=== PATIENT | male | born 1965 | race Two or more races ===

== ENCOUNTER 2023-11-05 07:15 | Emergency (ER) | payer BC, SELFPAY ==
--- NOTE | ~2023-11-05 | XR_ITS ---
EXAMINATION: XR SHOULDER, RIGHT CLINICAL INFORMATION: Pain COMPARISON: None available. TECHNIQUE: Three views of the right shoulder. FINDINGS: Visualized portion of the proximal right humerus demonstrate no fracture. Humeral head demonstrates good articulation the glenoid fossa. There are mild degenerative changes of the glenohumeral and acromioclavicular joints. Subtle soft tissue calcifications adjacent to the humeral head. Visualized right-sided ribs and lung parenchyma are unremarkable. XR/XR shoulder RT min 2V IMPRESSION: Mild degenerative changes of the right shoulder without fracture or dislocation.
[2023-11-05 07:47] VITALS: BP 97/66; PULSE 68; RESP 16; O2SAT 100; BMI 22.7
--- NOTE | 2023-11-05 08:14 | ED.EXTPRO ---
HPI - Extremity Problem General Chief complaint: Extremity Problem Stated complaint: R Shoulder Pain ? Bursitis Time Seen by Provider: 11/05/23 07:49 Source: patient and family () Mode of arrival: ambulatory Limitations: no limitations History of Present Illness HPI Narrative: 58-year-old male who presents emergency department for evaluation of right shoulder pain. Patient states that the pain started several weeks prior when he was doing pushups. Patient states that he does 4 sets of 25 pushups daily and when he was doing pushups he felt a pain in his right forearm. He states that shortly after that he developed pain in his right shoulder. He states that they right shoulder pain is got progressively worse. He states the pain is a constant, sharp pain which is worse with movement of his shoulder. He states he is feeling a tingly sensation in his fingers. He also states that his arm is weak since he is having difficulty moving his shoulder. Patient was seen on Friday at his [facility] the by an LUKE, no x-rays were obtained and he was not given any medications. He states that he has been taking Aleve intermittently 1-2 pills with no improvement of his pain. He denies any other injury. He denied fever, chills, rhinorrhea, chest pain, shortness of breath, dyspnea exertion. He states he did have nausea yesterday after taking to lead but no vomiting. Patient states that he does work out frequently, doing pushups and lifting weights. 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 Related Data Previous Rx's Medication Instructions Recorded cyclobenzaprine 10 mg tablet 10 mg PO BEDTIME PRN pain, muscle 11/05/23 spasm #15 tabs Allergies Allergy/AdvReac Type Severity Reaction Status Date / Time No Known Allergies Allergy Verified 11/05/23 07:46 Review of Systems Review of Systems: Yes all other systems are reviewed and are negative [facility] Past Medical History [facility] Narrative: Social history: He denies tobacco use. Occasionally drinks alcohol. He denies drug use. Social History Social History Advance Directives: No Advance Directives Information Provided: No Physical Exam Vital Signs: Vital Signs: Last Vital Signs Pulse 68 11/05/23 07:47 Resp 16 11/05/23 07:47 BP 97/66 11/05/23 07:47 Pulse Ox 100 11/05/23 07:47 O2 Del Method Room Air 11/05/23 07:47 BMI result Body Mass Index 22.7 Vital signs were normal Exam General: Awake, alert in no distress Extremities: Left upper extremity: Normal Right upper extremity: Patient does have tenderness palpation over the deltoid muscle of the shoulder, there is no tenderness palpation over his pectoralis muscles of his chest wall or over his scapular area. Patient has full passive and active range of motion of his wrist forearm and elbow. Patient does have pain with passive range of motion of his shoulder with increased pain with motion against resistance especially with abduction internal and external rotation. See extremities neurovascular intact Psych: Pleasant, cooperative Medical Decision Making Medical Decision Making MDM Narrative: 58-year-old male with no significant past medical history who presents to the emergency department for evaluation of 2 weeks of pain in his right shoulder. Patient has been taking Aleve intermittently with no relief his pain. Patient does exercise on a regular basis getting his upper extremities but does not recount a specific injury. 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 Review of system was negative for systemic symptoms. Patient does have pain with palpation of the deltoid area of his right shoulder, pain with passive range of motion of his right shoulder and increased pain with active range of motion. Given these findings I suspect the patient has tendinitis of his rotator cuff muscles and I did discuss this with him. Patient was advised to take Aleve 220 mg q.12 hours x5 days, then as needed He was prescribed Flexeril 10 mg at night to help relieve pain and spasm with his shoulder muscles. He advised apply ice for 15 minutes followed by heat for 15 minutes 4 to 6 times a day. He was shown 3 rotator cuff stretching exercises and I told him to perform these 3 times a day for the next week. Patient will need to follow-up with orthopedics for re-evaluation He was given a work note Differential Diagnosis Differential Diagnoses: The differential diagnosis associated with the presentation includes Differential diagnosis includes was not limited to tendinitis of the rotator cuff muscles, tear of her rotator cuff muscles, tear of rotator cuff, arthritis, occult fracture Independent Interpretation I performed an independent interpretation of an: Plain X-Ray Radiology Impression Discussion of test interpretation with radiology: I have reviewed the radiologist's reading. Independent Historian Clinical information obtained from an independent historian. History obtained from or confirmed by: Spouse Prescription Management I considered prescription management with: Other (Antispasm medication) Discharge Plan Discharge Clinical Impression: Tendinitis of right shoulder, Injury of right rotator cuff Patient Disposition: Home, Self-Care Instructions: Rotator Cuff Tendinitis (ED) Additional Instructions: Based on your description of your shoulder pain and your exam, I suspect that you have inflammation of the tendons of the rotator cuff muscles which is causing your pain in her limited range of motion of your shoulder. Take Aleve 220 mg pills, 1 pill every 12 hours for 5 days to try to get ahead of the inflammation then after that you can take 1 pill every 12 hours as needed for pain Take Flexeril (cyclobenzaprine) 10 mg pills, 1 pill every at night pain or spasm. This medication will make you sleepy. Do not drive or work while taking this medication. Apply ice for 15 minute then after 15 minutes apply heat for 15 minutes your shoulder, do this 4 times a day to help reduce the pain in her shoulder Do the 3 stretching exercise that I demonstrated for you (crawling up the wall, pendulum swings, big circles in both directions) 4 to 6 times a day. Trying to do normal activities with shoulder however do not exercise or drum for 1 week to address the tendons of your shoulder. Follow-up with our orthopedic group for re-evaluation and 1. Physical therapy may help rehab your shoulder as well, you can ask your doctor to refer you to physical therapy or the orthopedic group may also refer you to physical therapy. Please return to the emergency department if your symptoms get worse or if you develop any symptoms that are concerning to you. Prescriptions: New cyclobenzaprine 10 mg tablet 10 mg PO BEDTIME PRN (Reason: pain, muscle spasm) Qty: 15 0RF Referrals: Abilio Maya MD [Physician] - 1 week (Right shoulder pain with limited range of motion passively and actively) Stand Alone Forms: Work/School Release
== END 2023-11-05 10:16 | disposition home or self-care (01) ==
PROVIDERS: Emergency Provider Emergency Medicine Emergency Medical Services
DX: M75.31 Calcific tendinitis of right shoulder (principal); S46.001A Unspecified injury of muscle(s) and tendon(s) of the rotator cuff of right shoulder, initial encounter; X50.3XXA Overexertion from repetitive movements, initial encounter; Y93.B2 Activity, push-ups, pull-ups, sit-ups; Y92.9 Unspecified place or not applicable; Y99.9 Unspecified external cause status
CPT/HCPCS: 73030; 99282; 99283

== ENCOUNTER 2023-11-20 12:59 | Outpatient (AMB) | payer BC, SELFPAY ==
--- NOTE | 2023-11-20 13:00 | MHC.OFFVIS ---
Intake Intake Visit Reasons: Right shoulder pain Intake Note: Mr. Mcdaniel is a 58-year-old right-hand dominant male who presents with complaints of intermittent pain in his right shoulder. The patient states that he aggravated his shoulder several months ago. At that time he was doing 100 pushups per day for exercise. He thinks that he may have aggravated his shoulder while doing the pushups. He denies any weakness. 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 Allergies No Known Allergies Allergy (Verified 11/20/23 13:00) [facility]LY [facility], [facility] Social History Household Members: Spouse Alcohol intake: current Alcohol intake frequency: a few times a week Patient Tobacco Use Status: Never used Tobacco Use of substances other than those prescribed or required for medical reasons: No Physical Exam Const Other: Well-nourished well-developed very friendly male awake alert and oriented x3 in no acute distress Extrem Other: Bilateral upper extremity examination shows good capillary refill, no skin lesions noted, normal sensation light touch Right shoulder examination shows slightly decreased range of motion when compared to his left shoulder, 4+ out of 5 strength with supraspinatus testing, positive impingement signs, tenderness over his acromioclavicular joint, no instability Results Reviewed Results Reviewed: X-rays of the patient's right shoulder show severe acromioclavicular joint narrowing, a type 2 acromion, no acute bony abnormalities Assessment & Plan Assessment & Plan (1) Impingement of right shoulder: Code(s): M25.811 - Other specified joint disorders, right shoulder (2) Right shoulder pain: Code(s): M25.511 - Pain in right shoulder Plan Mr. Mcdaniel presents with right shoulder pain due to impingement syndrome and rotator cuff tendinosis. I had a lengthy discussion with the patient regarding the treatment options. We will hold off on a cortisone injection at this time. I did give him a prescription to go to formal physical therapy. The do's and don'ts of lifting were discussed at length with the patient. Will follow up with me on an as-needed basis should his symptoms not plateau at an unacceptable level over the next few months. I spent 22 minutes in reviewing the patient's records and imaging studies, seeing the patient and documenting in the medical record. Orders: Orders PT Evaluation and Treatment 11/20/23 M25.811 - Other specified joint disorders, right shoulder Coding Level of Care Code New Pt Level 2 (48863) Diagnoses Impingement of right shoulder M25.811 Right shoulder pain M25.511
== END 2023-11-20 13:18 | disposition home or self-care (01) ==
PROVIDERS: Visit Provider Orthopaedic Surgery
DX: M25.811 Other specified joint disorders, right shoulder (principal); M25.511 Pain in right shoulder
CPT/HCPCS: 99202

== ENCOUNTER → 2023-11-20 12:59 | Outpatient (BNVA) | payer BC, SELFPAY | PROVIDERS: Visit Provider Orthopaedic Surgery ==

== ENCOUNTER 2024-04-05 09:26 | Outpatient (AMB) | payer OTHER, BC, SELFPAY ==
--- NOTE | 2024-04-05 09:29 | MHC.OFFVIS ---
Vital Signs 04/05/24 09:30 Height 5 ft 11 in Weight 165 lb 5.547 oz BMI 23.1 BP 116/68 Blood Pressure Location Lt brachial Position Sitting Pulse 74 Pulse Source Monitor Pulse Oximetry (%) 98 Oxygen Delivery Method Room Air Intake Visit Reasons: [employer]/Rezaazdin-Boskovic/Tachycardia,a-flutter Allergies No Known Allergies Allergy (Verified 11/20/23 13:00) Medication List - Last Reconciled 04/05/24 by Feliciano Hinojosa MD No Known Home Meds HPI Comments Details: This is a cardiology consultation regarding palpitations and question of atrial fibrillation. Patient is fairly healthy apparently used to be running marathons and extremely active at baseline. He states that around 10 years ago he was having palpitations and he underwent workup including a stress test which was apparently unremarkable. Then he was fine for a few years but more recently he is again having some palpitations. Very brief episodes and lasting just about a minute or less. Sometimes, goes on for about an hour but nothing prolonged. No other cardiac symptoms. He is undergone Holter through the [place] and that shows bursts of either SVT or flutter. There is also some iPhone alerts for atrial fibrillation and I reviewed the strips. Possible atrial fibrillation but difficult to be sure. Improvement in symptoms after cutting back on alcohol/caffeine. [facility] Family History (Updated 04/05/24 @ 09:48 by Feliciano Hinojosa MD) Father No problems noted. Mother No problems noted. Social History (Updated 04/05/24 @ 09:40 by Leslie Hammond) Household Members: Spouse Alcohol intake: former Patient Tobacco Use Status: Never used Tobacco Review of Systems Const Denies weakness ENT Denies dizziness Card Denies chest pain, Denies chest pain with activity, Denies syncope, Denies rapid heart rate, Denies pedal edema, Denies edema, Denies leg edema, Denies lightheadedness, Denies palpitations, Denies dyspnea, Denies dyspnea on exertion and Denies orthopnea Resp Denies cough, Denies dyspnea and Denies dyspnea on exertion GI Denies hematochezia and Denies change in stool character Musc Denies abnormal gait, Denies muscle cramps, Denies muscle weakness, Denies numbness, Denies radiating pain into limb and Denies tingling Neuro Denies abnormal gait, Denies dizziness, Denies syncope, Denies numbness, Denies tingling and Denies weakness Endo Denies palpitations Physical Exam Vital Signs: Last Vital Signs Pulse 74 04/05/24 09:30 BP 116/68 04/05/24 09:30 Pulse Ox 98 04/05/24 09:30 Oxygen Delivery Method Room Air 04/05/24 09:30 BMI result Body Mass Index 23.1 Const General: comfortable and no acute distress Orientation/consciousness: patient oriented x3 HEENT Other: Unremarkable Head: Yes normal to inspection Neck Neck: Yes normal visual inspection Chest Chest palpation & inspection: normal inspection of the chest Resp Auscultation: clear to auscultation bilaterally Cardio Palpation: normal PMI Heart sounds: S1 normal heart sound present, S2 normal heart sound present, no gallops, no murmurs and no rubs GI Palpation (GI): Soft to palpation Back/Spine/Pelvis Other: unremarkable Skin General skin exam: no rashes or lesions noted Neuro General: patient oriented x3 Extrem General: Yes normal to inspection Psych Mental Status: mental status grossly normal Office Procedures EKG Details: EKG with sinus rhythm at 74/Min; no significant ST-T changes and otherwise unremarkable. [place]. [address]-Rhdfixhxszqruhzaa, Complete Assessment & Plan Assessment & Plan (1) Atrial arrhythmia: Code(s): I49.8 - Other specified cardiac arrhythmias Category: Medical Plan Available records reviewed. Echocardiogram 2017 with LVEF of 60%. Normal diastolic function. No significant valvular findings and otherwise unremarkable. Left atrium described to be normal in size. In the 7 day Holter, underlying rhythm is sinus with an average rate of 75/Min. He does have PACs with a burden of 2.8%. Short runs of SVT, longest around a minute. Could not exclude atrial tachycardia with variable block and atrial flutter. Overall, history of endurance exercises, palpitations, atrial arrhythmias which could be some combination of PACs, atrial tachycardia, flutter, fibrillation. Discussed pathophysiology of the above. His blood pressure runs low and hence will not be suitable for any beta-blockers or calcium channel blockers. He does not want any medications either as they are not too bothersome. If necessary, we may have to use something like flecainide. We will repeat another echocardiogram as it has been many years and will also get a Holter and reassess. Follow-up after that. Patient agrees to plan. Orders: Orders ECG 14 day holter monitor 3 Months I49.8 - Other specified cardiac arrhythmias CA echo transthoracic complete 3 Months I49.8 - Other specified cardiac arrhythmias Coding Level of Care Code New Pt Level 4 (82389) Diagnoses Atrial arrhythmia I49.8 CPT Codes EKG - CPT: 65554-Adrxrvwsuhfcocokd, Complete ([id number])
[2024-04-05 09:30] VITALS: BP 116/68; PULSE 74; O2SAT 98; BMI 23.1
== END 2024-04-05 09:58 | disposition home or self-care (01) ==
PROVIDERS: PCP Internal Medicine; Visit Provider Internal Medicine
DX: I49.8 Other specified cardiac arrhythmias (principal)
CPT/HCPCS: 93010; 99204

== ENCOUNTER → 2024-04-05 09:26 | Outpatient (BNVA) | payer OTHER, BC, SELFPAY | PROVIDERS: PCP Internal Medicine; Visit Provider Internal Medicine | DX: I49.8 Other specified cardiac arrhythmias (principal) | CPT/HCPCS: 93005; 99202 ==

== ENCOUNTER → 2024-06-18 09:13 | Outpatient (REF) | payer OTHER, BC, SELFPAY ==
--- NOTE | 2024-06-18 09:19 | HM_ITS ---
* Total monitoring time 14 days. * Underlying rhythm is sinus with an average rate of 78/Min. * Frequent supraventricular ectopy with a burden of 2.3%. Brief runs. Longest about 20 beats. * Atrial flutter/fibrillation episodes. Very low burden, 0.02%. Longest 1 minute 18 seconds. Fastest 159/Min. * Rare ventricular ectopy. * No significant pauses or AV blocks. * No patient markers. Patient diary without any symptoms. MTDD
--- NOTE | 2024-06-18 09:19 | CA_ITS ---
Transthoracic Echocardiogram Patient (Last, First, Middle): Enzo Mcdaniel E Gender: Male Date of : 1965 Age: 58 Procedure Date: 06/18/2024 Procedure Type: Transthoracic Echocardiogram Location: OP Height: 180.34 cm Weight: 75.3 kg BSA: 1.95 m2 Heart Rate: 69 bpm BP: 120 / 65 mmHg Overlock Operator: MICHELLE Agrawal MD: Feliciano Hinojosa MD Commissary Officer: Antony Murrieta MD Symptoms: I49.8 - Other specified cardiac arrhythmias Study Quality: Adequate ECG Rhythm: Sinus Conclusions: - Normal study Findings Left Ventricle Normal left ventricular size, thickness, and systolic function. The visually estimated ejection fraction is between 60-65%. Diastolic function is normal for age. Peak GLS is -19.2%, within normal limits. Right Ventricle Normal right ventricular cavity size and systolic function. Atria Both atria are normal in size. There is no evidence of interatrial shunt. Aortic Valve Normal aortic valve structure and function. There is no aortic valve stenosis. There is no aortic valve regurgitation. Mitral Valve Normal mitral valve structure and function. There is trace mitral valve regurgitation. There is no mitral valve stenosis. Pulmonic Valve The pulmonic valve is likely normal. There is trace pulmonic valve regurgitation. Tricuspid Valve Normal tricuspid valve structure. There is trace tricuspid valve regurgitation. The right ventricular systolic pressure is normal. The right ventricular systolic pressure is 25 mmHg. Normal right atrial pressure. There is no evidence of pulmonary hypertension. Great Vessels All visible segments of the aorta are normal in size. The visualized portions of the pulmonary artery and branches are normal. Venous The inferior vena cava is normal in size and collapses greater than 50% with inspiration. Pericardium/Pleural There is no evidence of pericardial effusion. Prior Study Comparison No prior study available for comparison. Measurements 2D Linear Measurements IVSd: 0.75 0.6-0.9/0.6-1.0 cm LVIDd: 4.88 3.9-5.3/4.2-5.9 cm LVIDd Index: 2.50 2.4-3.2/2.2-3.1 cm/m2 LVIDs: 3.00 2.0-3.6 cm LVPWd: 0.73 0.7-1.1 cm LA Diam: 3.40 2.7-3.8/3.0-4.0 cm LAIDs Index: 1.74 1.5-2.3 cm/m2 LV Mass: 146.94 67-162/88-224 g LV Mass Index: 75.35 43-95/49-115 g/m2 LVOT Diam: 2.00 3.0+(-)1.3 cm 2D Systolic Function EF 4C: 64.80 >55% EF 2C: 64.30 >55% EF BiP: 64.30 >55% Mitral Valve MV Pk E: 0.72 MV PK A: 0.57 MV Decel Time: 250.00 E/A: 1.30 E'Lateral: 11.90 E'Medial: 10.00 E/E' Med: 7.20 E/E' Lat: 6.10 PHT: 73.00 MVA PHT: 3.01 Decel Trego: 2.90 Aortic Valve AoV Pk Omar: 1.26 AoV Mn Omar: 0.96 AoV VTI: 0.29 AoV Pk Grad: 6.00 Aov Mn Grad: 4.00 OUMAR Cont.VTI: 2.61 LVOT LVOT Pk Omar: 1.14 LVOT Mn Omar: 0.78 LVOT VTI: 0.24 LVOT Pk Grad: 5.00 LVOT Mn Grad: 3.00 LVOT Diam: 2.00 LVOT Area: 3.14 Diastolic Function MV Pk E: 0.72 MV Pk A: 0.57 E/A: 1.30 E'Medial: 10.00 E/E' Med: 7.20 E' Laterial: 11.90 E/E' Lat: 6.10 Right Ventricle TAPSE (mm): 27.80 TVS' Omar: 15.70 Tricuspid Valve TR Pk Omar: 2.33 TR Pk Grad: 22.00 RA Press: 3.00 RVSP: 25.00 Great Vessels Aorta Sinus of Valsalva: 3.40 2.0-3.5 cm Ao Asc: 3.50 2.1-3.4 cm Pulmonary Valve PV Pk Omar: 0.90 Peak PV Grad: 3.00 Updated in Other Vendor System with Status of Final Anotny Murrieta MD electronically signed on 06/19/2024 12:26:45 PM with status of Final
== END ==
LOC: HO.CARD 09:13
PROVIDERS: PCP Internal Medicine; Visit Provider Internal Medicine
DX: I49.8 Other specified cardiac arrhythmias (principal)
CPT/HCPCS: 93246; 93306; 93356

== ENCOUNTER → 2024-06-18 09:19 | Outpatient (BNV) | payer OTHER, BC, SELFPAY | PROVIDERS: PCP Internal Medicine; Visit Provider Internal Medicine Cardiovascular Disease | DX: I48.91 Unspecified atrial fibrillation (principal); I48.92 Unspecified atrial flutter; I47.10 Supraventricular tachycardia, unspecified | CPT/HCPCS: 93248; 93306; 93356 ==

== ENCOUNTER 2024-07-06 09:07 | Outpatient (AMB) | payer OTHER, BC, SELFPAY ==
--- NOTE | 2024-07-06 09:09 | MHC.OFFVIS ---
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 Recently seen in consultation regarding palpitations and possible atrial fibrillation. Patient is fairly healthy apparently used to be running marathons and extremely active at baseline. He states that around 10 years ago he was having palpitations and he underwent workup including a stress test which was apparently unremarkable. Then he was fine for a few years but more recently he is again having some palpitations. Very brief episodes and lasting just about a minute or less. Sometimes, goes on for about an hour but nothing prolonged. No other cardiac symptoms. He underwent Holter through the [place] and that shows bursts of either SVT or flutter. There is also some iPhone alerts for atrial fibrillation and I reviewed the strips. Possible atrial fibrillation but difficult to be sure. Improvement in symptoms after cutting back on alcohol/caffeine. He has completed an echocardiogram and another Holter. [facility] Family History Father No problems noted. Mother No problems noted. Social History Household Members: Spouse Alcohol intake: former Patient Tobacco Use Status: Never used Tobacco Review of Systems Const Denies chills, Denies fatigue, Denies fever(s), Denies weight gain and Denies weight loss ENT Denies dizziness Card Denies chest pain, Denies leg edema, Denies lightheadedness, Denies palpitations, Denies dyspnea on exertion, Denies orthopnea and Denies other Resp Denies cough and Denies dyspnea on exertion GI Denies hematochezia and Denies change in stool character Musc Denies abnormal gait, Denies muscle weakness, Denies numbness, Denies radiating pain into limb and Denies tingling Neuro Denies abnormal gait, Denies dizziness, Denies numbness and Denies tingling Endo Denies fatigue and Denies palpitations Physical Exam Vital Signs: Last Vital Signs Pulse 84 07/06/24 09:11 BP 118/56 L 07/06/24 09:11 BMI result Body Mass Index 22.5 Const General: comfortable and no acute distress Orientation/consciousness: patient oriented x3 HEENT Other: Unremarkable Head: Yes normal to inspection Neck Neck: Yes normal visual inspection Chest Chest palpation & inspection: normal inspection of the chest Resp Auscultation: clear to auscultation bilaterally Cardio Palpation: normal PMI Heart sounds: S1 normal heart sound present, S2 normal heart sound present, no gallops, no murmurs and no rubs GI Palpation (GI): Soft to palpation Back/Spine/Pelvis Other: unremarkable Skin General skin exam: no rashes or lesions noted Neuro General: patient oriented x3 Extrem General: Yes normal to inspection Psych Mental Status: mental status grossly normal Assessment & Plan Assessment & Plan (1) PAF (paroxysmal atrial fibrillation): Code(s): I48.0 - Paroxysmal atrial fibrillation Category: Medical (2) Atrial arrhythmia: Code(s): I49.8 - Other specified cardiac arrhythmias Category: Medical Plan Cardiac data reviewed. Echocardiogram 2017 with LVEF of 60%. Normal diastolic function. No significant valvular findings and otherwise unremarkable. Left atrium described to be normal in size. In the 7 day Holter, underlying rhythm is sinus with an average rate of 75/Min. He does have PACs with a burden of 2.8%. Short runs of SVT, longest around a minute. Could not exclude atrial tachycardia with variable block and atrial flutter. Recent studies- Echocardiogram with LVEF of 60-65% with normal peak global longitudinal strain. Normal atrial size. Otherwise unremarkable. In the Holter monitor, underlying sinus rhythm with frequent supraventricular ectopy with a burden of 2.3%. Brief atrial flutter/fibrillation episodes with a burden of 0.02%. Longest episode is just over minute. Findings discussed with patient. Also reviewed the strips. Overall, he states he is actually feeling better the symptoms are not too bothersome. His blood pressure runs in the lowish range and hence may not be able tolerate any beta-blockers and he does not want any medications either. If indeed he has more frequent palpitations, can consider flecainide. We will see him back in 1 year with another Holter monitor. Orders: Orders ECG 3 day holter monitor 1 Year I48.0 - Paroxysmal atrial fibrillation Coding Level of Care Code Est Pt Level 3 (60022) Diagnoses PAF (paroxysmal atrial fibrillation) I48.0 Atrial arrhythmia I49.8
[2024-07-06 09:11] VITALS: BP 118/56; PULSE 84; BMI 22.5
== END 2024-07-06 10:12 | disposition home or self-care (01) ==
PROVIDERS: PCP Internal Medicine; Visit Provider Internal Medicine
DX: I48.0 Paroxysmal atrial fibrillation (principal); I49.8 Other specified cardiac arrhythmias
CPT/HCPCS: 99213

== ENCOUNTER → 2024-07-06 09:07 | Outpatient (BNVA) | payer OTHER, BC, SELFPAY | PROVIDERS: PCP Internal Medicine; Visit Provider Internal Medicine | DX: I48.0 Paroxysmal atrial fibrillation (principal); I49.8 Other specified cardiac arrhythmias | CPT/HCPCS: 99212 ==

== ENCOUNTER → 2025-09-16 09:45 | Outpatient (REF) | payer OTHER, SELFPAY ==
--- NOTE | 2025-09-16 09:49 | HM_ITS ---
* Total monitoring time 14 days. * Underlying rhythm is sinus with an average rate of 83/Min. * Atrial fibrillation noted with a burden of about 13%. Longest episode 21 hours. Fastest 197/Min. * Rare ventricular ectopy. * Palpitations in patient diary correlated with atrial fibrillation with rapid rate. MTDD
--- OUTSIDE RECORDS SUMMARY | 2025-09-16 11:13 | XMS_ITS | Encounter Summary ---
Author Organization [employer] Address [address] [facility] [address] [place] [address] Care Team Providers Care Uniform Attendant Name Role Phone Unavailable Primary Care Provider Unavailabl e Encounter Details Date Type Department Care Team (Latest Contact Info) Description 05/27/2019 Abstract [facility] CONVERSIONS Dental, Provider, DDS Social History Tobacco Use Types Packs/Day Years Used Date Smoking Tobacco: Never Assessed Sex and Gender Information Value Date Recorded Sex Assigned at Male 09/30/2022 10:30 AM EDT Legal Sex Male 10:30 AM EDT Gender Identity Male 09/30/2022 10:30 AM EDT Sexual Orientation Straight 09/30/2022 10 :30 AM EDT documented as of this encounter Plan of Treatment Not on file documented as of this encounter Visit Diagnoses Not on filedocumented in this encounter
--- OUTSIDE RECORDS SUMMARY | 2025-09-16 11:13 | XMS_ITS | Clinical Summary ---
Author Organization [employer] Address [address] [facility] [address] [place] [address] Care Team Providers Care High Pressure Cleaner Name Role Phone Unavailable Primary Care Provider Unavailabl e Social History Tobacco Use Types Packs/Day Years Used Date Smoking Tobacco: Never Assessed Sex and Gender Information Value Date Recorded Sex Assigned at Male 09/30/2022 10:30 AM EDT Legal Sex Male 10:30 AM EDT Gender Identity Male 09/30/2022 10:30 AM EDT Sexual Orientation Straight 09/30/2022 10 :30 AM EDT Plan of Treatment Health Maintenance Due Date Last Done Comments CT Colonography 1964 Colonoscopy 1964 Colorectal Cancer Screening 1964 Depression Screening 1964 FIT DNA/Cologuard 1964 FIT 1964 FOBT 1964 Lipid Panel 1964 Sigmoidoscopy 1964 Disability Screening 1964 Alcohol/Substance Use Screening 1976 Tobacco Screening 1976 DTaP/Tdap/Td Vaccines (1 - Tdap) 1983 Pneumococcal Vaccine: 50+ Ye ars (1 of 1 - PCV) 2014 Zoster Vaccines (1 of 2) 2014 COVID-19 Vaccine (1 - 2023-2 5 season) 2025 Influenza Vaccine (#1) 2025 RSV Patients and Pa tients Aged 60 years or older (1 - 1-dose 75+ series) 2039 HIB Vaccines Aged Out No longer eligi ble based on patient's age to complete this topic HPV Vaccines Aged Out No longer eligi ble based on patient's age to complete this topic Hepatitis A Vaccines Aged Out No long er eligible based on patient's age to complete this topic Hepatitis B Vaccines Aged Out No long er eligible based on patient's age to complete this topic IPV Vaccines Aged Out No longer eligi ble based on patient's age to complete this topic Meningococcal B Vaccine Aged Out No l onger eligible based on patient's age to complete this topic Meningococcal Vaccine Aged Out No maya kevin eligible based on patient's age to complete this topic RSV under 20 months Aged Out No longe r eligible based on patient's age to complete this topic Rotavirus Vaccines Aged Out No longer eligible based on patient's age to complete this topic
== END ==
LOC: HO.CARD 09:45
PROVIDERS: Visit Provider Internal Medicine
DX: R00.2 Palpitations (principal); I48.0 Paroxysmal atrial fibrillation
CPT/HCPCS: 93246

== ENCOUNTER → 2025-09-16 09:49 | Outpatient (BNV) | payer OTHER, SELFPAY | PROVIDERS: Visit Provider Internal Medicine | DX: I48.91 Unspecified atrial fibrillation (principal); I49.3 Ventricular premature depolarization | CPT/HCPCS: 93248 ==

== ENCOUNTER 2025-11-01 14:47 | Outpatient (AMB) | payer OTHER, SELFPAY ==
[2025-11-01 14:48] VITALS: BP 120/64; PULSE 77; BMI 23.9
--- NOTE | 2025-11-01 14:48 | A.OFFVIS_ITS ---
Vital Signs 11/01/25 14:48 Height 5 ft 11 in Weight 171 lb 8.314 oz BMI 23.9 BP 120/64 Blood Pressure Location Lt brachial Position Sitting Pulse 77 Pulse Source Monitor Intake Visit Reasons: f/up- Holter r/s 10-10-25 Wildlife Conservation Officer Required: No Allergies No Known Allergies Allergy (Verified 11/01/25 14:54) Medication List - Last Reconciled 11/01/25 by Riley Montano NP cholecalciferol (vitamin D3) 25 mcg PO DAILY HPI Comments Details: This is a 59-year-old male patient coming in for a follow-up visit. Patient with a history of PACs and paroxysmal AFib with a burden of 0.02% in the 1st Holter. Patient repeated a Holter recently that showed increased burden of AFib up to 13%. Patient has a cardia mobile device that he has been monitoring show an increased episodes of AFib. Patient states that his AFib can be triggered with minimal movement such as moving a walker for his mom. Patient notes that his heart rate is elevated during the times when he is in AFib. Patient is otherwise denying any exertional chest pain, shortness of breath, orthopnea, PND, leg edema, presyncope or syncope. [facility] Family History Father CHF (congestive heart failure) Mother No problems noted. Social History Household Members: Spouse Alcohol intake: former Patient Tobacco Use Status: Never used Tobacco Review of Systems Const Denies daytime sleepiness, Denies difficulty sleeping, Denies snoring, Denies stops breathing during sleep and Denies weakness Card Denies chest pain, Denies rapid heart rate, Denies irregular heart rhythm, Denies claudication, Denies leg edema, Denies lightheadedness, Denies palpitations, Denies dyspnea, Denies dyspnea on exertion, Denies orthopnea, Denies paroxysmal nocturnal dyspnea and Denies slow heart rate Resp Denies cough, Denies dyspnea, Denies dyspnea on exertion and Denies snoring GI Reports no additional complaints, Denies hematochezia, Denies change in stool character and Denies dyspepsia Musc Denies abnormal gait, Denies muscle weakness and Denies numbness Neuro Denies abnormal gait, Denies numbness and Denies weakness Endo Denies palpitations Physical Exam Vital Signs: Last Vital Signs Pulse 77 11/01/25 14:48 BP 120/64 11/01/25 14:48 BMI result Body Mass Index 23.9 Const General: cooperative, healthy appearing, comfortable and no acute distress Orientation/consciousness: patient oriented x3 HEENT Head: Yes normal to inspection Neck Neck: Yes normal visual inspection, Yes trachea midline and Yes supple Chest Chest palpation & inspection: normal inspection of the chest Resp Effort & Inspection: normal respiratory effort Auscultation: clear to auscultation bilaterally, no crackles, no rales, no rhonchi and no wheezes Cardio Jugular venous distension: no JVD Palpation: normal PMI Rate: regular rate Rhythm: regular rhythm Heart sounds: S1 normal heart sound present, S2 normal heart sound present, no click, no gallops, no murmurs and no rubs Peripheral pulses: Peripheral pulses 2+ throughout GI Inspection: Yes normal to inspection Palpation (GI): Soft to palpation Auscultation: normal bowel sounds Skin General skin exam: no rashes or lesions noted Neuro General: patient oriented x3 Extrem General: Yes normal to inspection, No no pedal edema and No calf tenderness Psych Appearance: grossly normal Mental Status: mental status grossly normal Speech and movement: Normal speech and movement present Office Procedures EKG Details: EKG today showed normal sinus rhythm, rate 77 beats per minute, peaked P suggesting possible right atrial enlargement, nonspecific ST-T, [place], [place]. [id number], Complete Assessment & Plan Assessment & Plan (1) PAF (paroxysmal atrial fibrillation): Code(s): I48.0 - Paroxysmal atrial fibrillation Category: Medical Plan: 06/18/2024-echo study showed a normal LV systolic function with an ejection fraction between 60-65% and normal biatrial size. 09/16/2025-Holter study showed a underlying sinus rhythm with AFib burden of 13% longest episode of 21 hours with the fastest heart rate of 197 beats per minute, rare PVCs. Patient reported palpitations with AFib. Where is patient's Holter in May of 2024 showed AFib/flutter burden of 0.02% with frequent PACs. EKG today showed normal sinus rhythm with possible right atrial enlargement. We discussed in detail about options for management of AFib. Patient is very hesitant about medications however after prolonged discussion, patient has decided to be on metoprolol for rate control. Patient also agreeable on meeting with EP for possible discussion of catheter ablation. The procedure along with its indications, risks, and benefits was discussed with the patient. Patient's Nicolas Vasc risk score of 0 however with the presumption that patient will undergo ablation, we will start patient on Eliquis therapy. We will check labs in 1 month. Advised to monitor blood pressures at home. Advised to continue with heart healthy diet, regular exercise, med compliance, stress medication, avoiding alcohol intake or other stimulants like caffeinated beverages, and management of vascular risk factors. Follow up after EP consultation. In the interim, patient will call the office with any concerns or change in symptoms. This note was generated using voice recognition software. While every effort has been made to ensure accuracy and proper metal furniture panel coverer, there may be occasional errors that could affect the content or meaning of the described symptoms. Orders: Orders AMB EKG-In Office Today I48.0 - Paroxysmal atrial fibrillation Basic Metabolic Panel Today I48.0 - Paroxysmal atrial fibrillation Referrals Cardiac Electrophysiology Referral I48.0 - Paroxysmal atrial fibrillation Medications: New apixaban 5 mg PO BID 60 tabs 5RF metoprolol succinate ER 25 mg PO DAILY 90 tabs 5RF Coding Level of Care Code Est Pt Level 4 (31287) Complex visit Add On G2211 Diagnoses PAF (paroxysmal atrial fibrillation) I48.0 CPT Codes EKG - CPT: 66720-[id number], Complete ([id number]) Time Spent (min) 33 Comment Time spent in reviewing the chart, test results, assessment, counseling and documentation.
--- OUTSIDE RECORDS SUMMARY | 2025-11-01 16:39 | XMS_ITS | Clinical Summary ---
Author Organization [employer] Address [address] [facility] [address] [place] [address] Care Team Providers Care Deicer Tester Name Role Phone Unavailable Primary Care Provider [...] Vaccines (1 of 2) 2014 COVID-19 Vaccine ( - 2024-2 6 season) 2025 Influenza Vaccine (#1) 2025 RSV [...]
--- OUTSIDE RECORDS SUMMARY | 2025-11-01 16:39 | XMS_ITS | Encounter Summary ---
Author Organization [employer] Address [address] [facility] [address] [place] [address] Care Team Providers Care Can Repairer Name Role Phone Unavailable Primary Care Provider Unavailabl e Encounter Details Date Type Department Care Team (Latest Contact Info) Description 05/27/2019 Abstract [facility] CONVERSIONS Dental, Provider, DDS Social [...]
== END 2025-11-01 15:32 | disposition home or self-care (01) ==
LOC: HO.HCS 14:47
DX: I48.0 Paroxysmal atrial fibrillation (principal)
CPT/HCPCS: 93010; 99214; G2211

== ENCOUNTER → 2025-11-01 14:47 | Outpatient (BNVA) | payer OTHER, SELFPAY | DX: I48.0 Paroxysmal atrial fibrillation (principal) | CPT/HCPCS: 93005; 99212 ==

== ENCOUNTER 2025-11-02 15:30 | Outpatient (REF) | payer OTHER, SELFPAY ==
[2025-11-02 15:47] LABS: Hematocrit 43.1 % (42.0-52.0); Hemoglobin 14.0 g/dl (14.0-18.0); Mean Corpuscular HGB Conc 32.5 g/dl (31.0-36.0); Mean Corpuscular Hemoglobin 29.2 pg (27.0-33.0); Mean Corpuscular Volume 89.8 fL (80.0-98.0); NRBC Abs Auto 0.000 X10*3/uL (0.0-0.012); NRBC Pct Auto 0.0 /100WBC (0.0-0.2); Platelet Count 283 X10*3/uL (160-400); Red Blood Count 4.80 X10*6/uL (4.60-5.80); White Blood Count 7.1 X10*3/uL (4.8-10.8)
[2025-11-02 16:24] LABS: Anion Gap 11 (12-20); Blood Urea Nitrogen 17 mg/dL (9-16); Calcium 9.6 mg/dL (8.4-10.2); Carbon Dioxide 28 mmol/L (22-29); Chloride 103 mmol/L (96-108); Estimated Glomerular Filt Rate > 60; Potassium 4.3 mmol/L (3.3-5.1); Sodium 138 mmol/L (135-145)
--- OUTSIDE RECORDS SUMMARY | 2025-11-02 18:29 | XMS_ITS | Clinical Summary ---
Author Organization [employer] Address [address] [facility] [address] [place] [address] Care Team Providers Care Mortgage Protection Specialist Name Role Phone Unavailable Primary Care Provider [...]
--- OUTSIDE RECORDS SUMMARY | 2025-11-02 18:29 | XMS_ITS | Encounter Summary ---
Author Organization [employer] Address [address] [facility] [address] [place] [address] Care Team Providers Care Packaging Inspector Name Role Phone Unavailable Primary Care Provider Unavailabl e Encounter Details Date Type Department Care Team (Latest Contact Info) Description 05/27/2019 Abstract [facility] CONVERSIONS Dental, Provider, DDS Social History Tobacco [...]
== END 2025-11-02 15:31 | disposition home or self-care (01) ==
LOC: HO.LAB 15:30
DX: I48.0 Paroxysmal atrial fibrillation (principal)
CPT/HCPCS: 36415; 80048; 85027